=== PATIENT | female | born 1990 | race Caucasian/White ===

== ENCOUNTER 2020-10-03 16:10 | Emergency (ER) | payer BC ==
[~2020-10-03 16:10] MED LIST: LEXAPRO20 MG PO; PRENATAL VITAM1 EAC3 PO; ZANTAC150 MG PO
[2020-10-03 17:37] LABS: HEMOGLOBIN 14.1 gm/dl (12.3-15.3); RED BLOOD COUNT 4.92 M/UL (4.00-5.10); WHITE BLOOD COUNT 12.5 K/UL (4.5-11.0)
[2020-10-03 17:51] LABS: BUN/CREATININE RATIO 15 (0-10)
[2020-10-03] MEDS ORDERED: ZOFRAN4 MG PO (19:21)
[2020-10-03] MEDS ORDERED: TORADOL 10 MG T10 MG PO (19:21)
[2020-10-03] MEDS ORDERED: OMNICEF 300 MG300 MG PO (19:22)
[2020-10-03] MEDS ORDERED: HYDROCODON-ACE1 EAC4 PO (19:28)
== END 2020-10-03 19:40 | disposition home or self-care (01) ==
LOC: ER1 16:10
PROVIDERS: Physician Assistant Medical
DX: N13.2 Hydronephrosis with renal and ureteral calculous obstruction (principal); E03.9 Hypothyroidism, unspecified; Z88.1 Allergy status to other antibiotic agents
CPT/HCPCS: 80053; 81001; 83690; 85025; 87086; 96374; 96375; 99284; J0696; J1885; J2270; J2405

== ENCOUNTER → 2020-10-22 | Outpatient (CLI) | payer BC ==
[~2020-10-22] MED LIST changes: +HYDROCODON-ACE1 EAC4 PO; +OMNICEF 300 MG300 MG PO; +TORADOL 10 MG T10 MG PO; +ZOFRAN4 MG PO
== END ==
LOC: EXRD 15:29
DX: N20.2 Calculus of kidney with calculus of ureter (principal)
CPT/HCPCS: 74018